=== PATIENT | male | born 1970 | race Caucasian/White ===

== ENCOUNTER 2018-02-05 00:01 | Emergency (ER) | payer SELFPAY ==
[~2018-02-05] VITALS: Ht 177.8 cm; Wt 73.8 kg
[~2018-02-05 00:01] MED LIST: ADVAIR 250/501 DISK IH; ALLERGY RELIEF10 M1 PO; Avapro PO; FLOVENT DISKUS1 DISK IH; NORVASC5 MG PO; PREDNISONE20 MG PO; SPIRIVA1 INHALATI IH; SYMBICORT60 INHALAT IH; THEO-24 100 MG100 MG PO; THEO-DUR,THEOC200 MG PO
[2018-02-05 00:37] LABS: HEMATOCRIT 40.1 % (38.0-50.0); HEMOGLOBIN 13.8 G/DL (12.5-16.6); MCH 32.6 PG (29.0-34.0); MCHC 34.4 G/DL (30.0-36.0); MCV 94.8 FL (86-99); PLATELET COUNT 296 K/uL (156-360); RED BLOOD COUNT 4.23 M/uL (4.00-5.50); WHITE BLOOD COUNT 8.6 K/uL (4.1-10.2)
[2018-02-05 00:46] LABS: CHLORIDE 96 mEq/L (99-109); POTASSIUM 3.6 mEq/L (3.7-5.4); SODIUM 138 mEq/L (136-147)
[2018-02-05 00:48] LABS: GLUCOSE 122 mg/dL (70-99)
[2018-02-05 00:50] LABS: CARBON DIOXIDE (BICARBONATE) 35.2 MEQ/L (20-31)
[2018-02-05 00:51] LABS: SERUM ETHYL ALCOHOL 87 mg/dL
[2018-02-05 00:52] LABS: CREATININE 0.9 mg/dL (0.6-1.3); GFR ESTIMATE (CALCULATED) > 59 mL/min/ (58.99-99999)
[2018-02-05 00:53] LABS: UREA NITROGEN (BUN) 10 mg/dL (9-23)
[2018-02-05 00:55] LABS: ACETAMINOPHEN (TYLENOL) < 10 mcg/mL (10-30); SALICYLATE < 5.0 MG/DL (15-30)
[2018-02-05 02:45] LABS: AMPHETAMINE NEGATIVE (500 ng/mL); BARBITURATES NEGATIVE (200 ng/mL); BENZODIAZEPINES NEGATIVE (150 ng/mL); BUPRENORPHINE NEGATIVE (10 ng/mL); COCAINE PRESUMPTIVE POSITIVE (150 ng/mL); METHADONE NEGATIVE (200 ng/mL); METHAMPHETAMINE NEGATIVE (500 ng/mL); OPIATES (MORPHINE) NEGATIVE (100 ng/mL); OXYCODONE PRESUMPTIVE POSITIVE (100 ng/mL); PHENCYCLIDINE NEGATIVE (25 ng/mL); PROPOXYPHENE NEGATIVE (300 ng/mL); THC CANNABINOIDS NEGATIVE (50 ng/mL); TRICYCLIC ANTIDEPRESSANTS NEGATIVE (300 ng/mL)
[2018-02-05 04:07] VITALS: BP 133/78
== END 2018-02-05 04:09 | disposition home or self-care (01) ==
LOC: EME → EDBD 00:01 → EME 04:09
PROVIDERS: Emergency Medicine
DX: J44.1 Chronic obstructive pulmonary disease with (acute) exacerbation (principal); F19.10 Other psychoactive substance abuse, uncomplicated; T40.2X1A Poisoning by other opioids, accidental (unintentional), initial encounter; R00.0 Tachycardia, unspecified; R94.31 Abnormal electrocardiogram [ECG] [EKG]; I10 Essential (primary) hypertension; F17.200 Nicotine dependence, unspecified, uncomplicated; Z99.81 Dependence on supplemental oxygen; Z79.52 Long term (current) use of systemic steroids; Z87.09 Personal history of other diseases of the respiratory system
CPT/HCPCS: 71046; 80048; 82803; 84999; 85027; 93005; 94640; 99281; 99285; G0480; J2060; J7030